=== PATIENT | female | born 1975 | race Caucasian/White ===

== ENCOUNTER 2018-09-11 08:57 | Emergency (ER) | payer OTHER ==
[2018-09-11] MEDS ORDERED: HYDROmorphone 1 MG/ML Syringe ONE (09:06)
[2018-09-11] MEDS ORDERED: Metoclopramide 10 MG/2 ML SDV IVPUSH ONE (09:06)
[2018-09-11] MEDS ORDERED: HYDROmorphone 1 MG/ML Syringe IVPUSH ONE ×2 (09:06→10:33)
[2018-09-11] MEDS ORDERED: LORazepam 2 MG/ML SDV IVPUSH ONE (09:06)
[2018-09-11] MEDS ORDERED: LORazepam 2 MG/ML SDV ONE (09:07)
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
[2018-09-11] MEDS ORDERED: Sodium Chloride 0.9% 1,000 ML IV SCH (09:15)
[2018-09-11] MEDS ORDERED: Diphtheria,Pertussis(Acell),Tetanus Vaccine 0.5 ML Syringe IM ONE (09:23)
[2018-09-11] MEDS ORDERED: ceFAZolin 1 GM in Premix Bag 1 BAG IV ONE (09:23)
[2018-09-11] MEDS ORDERED: Midazolam 1 MG/ML 5 ML SDV IVPUSH ONE (09:46)
[2018-09-11] MEDS ORDERED: fentaNYL 100 MCG/2 ML SDV IVPUSH ONE (09:46)
[2018-09-11] MEDS ORDERED: Lidocaine 1% 10 ML MDV INJECT ONE (10:17)
--- NOTE | 2018-09-11 10:32 | CT ---
Head CT Technique: Multiple axial sections through the brain were obtained. Intravenous contrast was not utilized. Comparison: Previous MRI brain of 06/21/[address] study of 06/20/13. Findings: Ventricles longer basal cisterns and sulci over convexities are mildly prominent. No abnormal parenchymal densities are seen. No evidence of intracranial hemorrhage. No midline shift or mass effect is seen. Bone window settings were reviewed which shows mucosal thickening within both inferior maxillary sinuses, which is worse on the right side which is likely chronic. No acute calvarial abnormality is seen. Scalp injury identified on the right side. Small foreign body is projected within the right frontal scalp. Impression: 1. Scalp injury on the right side. Small foreign body projected within the right frontal scalp. 2. Mild generalized atrophy. 3. No acute intracranial abnormality is seen. No acute skull fracture is noted. 4. Sinus findings which are likely chronic. Diagnostic code #3
--- NOTE | 2018-09-11 10:42 | CT ---
CT lumbar spine Technique: Multiple axial sections through the lumbar spine were obtained. Comparison: No prior lumbar spine imaging. Findings: Burst fracture is identified within the L1 vertebral body. There is approximately 60% vertebral body height loss. Retrolisthesed fragments are seen into the central canal at this level. These retrolisthesed fragment projects approximately 6.7 mm into the central canal. Fracture lines extend into the posterior vertebral line. Fracture is noted within the right posterior arch of L1 which shows no displacement. Additional fracture is noted within the transverse process of L1 on the right side which is slightly comminuted but shows no displacement. No additional fracture is seen. Spondylitic defects noted at L5-S1 causing mild spondylolisthesis by about 5-6 mm at L5-S1. Posterior disc space narrowing noted at L5-S1. Impression: 1. Burst fracture of L1 which shows retrolisthesed fragments into the central canal which narrows the central canal. Additional nondisplaced fracture within the posterior right arch of L1 and right transverse process of L1. 2. 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 Posterior disc at L5-S1 is narrowed. 3. No additional abnormality is appreciated. Diagnostic code #5
--- NOTE | 2018-09-11 10:45 | CT ---
CT cervical spine Technique: Multiple axial sections through the cervical spine were obtained. Reconstructed sagittal and coronal images were reviewed. Comparison: Prior cervical spine CT study of 06/20/13. Findings: Vertebral body heights and disc spaces are maintained. No bony central or bony neural foraminal stenosis is seen. No fracture is identified. Minimal degenerative change is seen within the lower apophyseal joints. Impression: 1. Slight degenerative change. 2. Nothing acute is appreciated on CT study of the cervical spine. Diagnostic code #2
--- NOTE | 2018-09-11 10:45 | CT ---
CT thoracic spine Technique: Multiple axial sections through the thoracic spine were obtained. Reconstructed coronal and sagittal images were obtained. Findings: Burst fracture with retrolisthesis fragments is again seen of L1. Vertebral body heights within the thoracic spine are maintained. No thoracic spine fracture is seen. No bony central lower bony neural foraminal analysis is seen. No abnormal subluxation is seen. No gross disc herniation is seen. Impression: 1. Burst fracture with retrolisthesis fragments again noted at L1. 2. CT study of the thoracic spine is otherwise unremarkable. Diagnostic code #3
--- NOTE | 2018-09-11 10:50 | CT ---
CT facial bones Technique: Multiple axial sections through the facial bones were obtained. Reconstructed sagittal and coronal images were reviewed. Comparison: Previous facial bone CT study of 06/20/13. Findings: Moderate areas of mucosal thickening and possible superimposed retention cysts are noted within both inferior maxillary sinuses. Other paranasal sinuses are clear. Incidental nasal septal deviation is seen. Lucency is noted around several teeth within the mandible and difficult to completely exclude tooth abscess. Findings may also represent reabsorption of bone from previous intervention. No fracture is seen. Right and left globes are symmetric. Impression: 1. Lucency around several mandibular teeth as described above. 2. No acute facial bone abnormality is seen. 3. Sinus findings which are felt to be chronic. Diagnostic code #3
--- NOTE | 2018-09-11 10:56 | CT ---
CT chest Technique: Multiple axial sections through the chest were obtained. Comparison: No prior chest CT, chest x-ray of 06/23/13 is available. Findings: Lungs are clear. No pulmonary contusion is seen. No pleural effusions or pneumothorax is seen. Mediastinum and hilar regions appear within normal limits. Moderately large hiatal hernia is noted. No discrete rib fracture is seen. Reconstructed sagittal images of the sternum appear intact. Impression: 1. Nothing acute is appreciated on CT study of the chest. Incidental findings as noted above. Diagnostic code #2 CT abdomen and pelvis Technique: Multiple axial sections were obtained from above the dome of the diaphragm inferiorly through the pubic symphysis. Intravenous contrast was utilized. Delayed images were also obtained from above the kidneys inferiorly through the pubic symphysis. No oral contrast has been given. Findings: Moderately large hiatal hernia again noted. Small low density finding is seen within the posterior right lobe of the liver which is felt to be incidental. No acute abnormality appreciated within the liver. Spleen appears within normal limits. Pancreas is within normal limits. Gallbladder contains no calcified gallstones. Adrenal glands show no nodule. Kidneys show symmetric contrast enhancement without abnormality. Aorta shows no aneurysm. No retroperitoneal adenopathy or mesenteric abnormalities are seen. No pelvic mass or adenopathy is noted. Delayed images shows contrast within the ureters which showed no contrast extravasation or ureteral obstruction. Contrast is noted within the bladder. Bone window settings again show burst fracture within L1. Vacuum phenomena is seen within the sacroiliac joints which is incidental. No acute fracture is appreciated within the pelvis or within either hip. Impression: 1. Incidental findings. Nothing acute is seen on CT study of the abdomen and pelvis. Diagnostic code #2
[2018-09-11] MEDS ORDERED: levETIRAcetam 500 MG in Sodium Chloride 0.9% 100 ML IV ONE (11:09)
--- NOTE | 2018-09-12 12:12 | CR ---
Right shoulder: Single AP view of the right shoulder was obtained. Overlying monitor leads are seen. No discrete fracture or other abnormality is seen. Impression: 1. No discrete abnormality is seen on one-view right shoulder study. Diagnostic code #1
--- NOTE | 2018-09-12 12:12 | CR ---
Left ankle: Four views of the left ankle were obtained. Comparison: No prior ankle study. Ankle mortise is symmetric. Soft tissue swelling is seen. Small plantar spur is noted. No acute fracture or dislocation is seen. Impression: 1. Findings as noted above. No acute bony abnormality is identified on the left ankle exam. Diagnostic code #2
== END 2018-09-11 12:25 ==
LOC: JD.ED 08:57
DX: S43.014A Anterior dislocation of right humerus, initial encounter (principal); S32.010A Wedge compression fracture of first lumbar vertebra, initial encounter for closed fracture; S32.019A Unspecified fracture of first lumbar vertebra, initial encounter for closed fracture; V49.3XXA Car occupant (driver) (passenger) injured in unspecified nontraffic accident, initial encounter; S01.81XA Laceration without foreign body of other part of head, initial encounter; S93.412A Sprain of calcaneofibular ligament of left ankle, initial encounter; F10.20 Alcohol dependence, uncomplicated
CPT/HCPCS: 12011; 23650; 36415; 51702; 70450; 70486; 71260; 72125; 72128; 72131; 73020; 73610; 74177; 80053; 81001; 82150; 82550; 84703; 85007; 85027; 85610; 85730; 90471; 90700; 93005; 96361; 96365; 96367; 96375; 96376; 99152; 99285; G0480; J0690; J1170; J1953; J2001; J2250; J2765; J3010; J7030; J7040; 23655; 93010; J2060

== ENCOUNTER 2021-10-24 15:45 | Emergency (ER) | payer MEDICAID, OTHER ==
[2021-10-24] MEDS ORDERED: Sodium Chloride 0.9% 10 ML Syringe FLUSH PRN ×2 (16:29→17:40)
[2021-10-24] MEDS ORDERED: Iopamidol 755 Mg/ML 100 ML Bottle IVPUSH ONE (17:40)
[2021-10-24] MEDS ORDERED: Sodium Chloride 0.9% 100 ML IV SCH (17:45)
== END 2021-10-24 19:17 | disposition home or self-care (01) ==
LOC: JD.ED 15:45
DX: R55 Syncope and collapse (principal); I10 Essential (primary) hypertension; Z72.0 Tobacco use; Z79.899 Other long term (current) drug therapy
CPT/HCPCS: 36415; 70450; 71045; 71275; 80053; 80307; 81001; 83735; 84443; 84484; 85025; 85379; 86140; 93005; 93225; 93226; 96360; 99285; J3490; Q9967

== ENCOUNTER 2022-05-01 08:54 | Emergency (ER) | payer MEDICAID ==
[2022-05-01] MEDS ORDERED: Sodium Chloride 0.9% 1,000 ML IV ONE (09:03)
[2022-05-01 10:32] LABS: ESTIMATED GFR 62 mL/min (>60)
[2022-05-01] MEDS ORDERED: levETIRAcetam 1,000 MG in Sodium Chloride 0.9% 100 ML IV ONE (11:18)
[2022-05-01] MEDS ORDERED: levETIRAcetam 500 MG/5 ML SDV ONE (11:23)
== END 2022-05-01 12:10 | disposition home or self-care (01) ==
LOC: JD.ED 08:54
DX: R56.9 Unspecified convulsions (principal); I10 Essential (primary) hypertension; Z79.899 Other long term (current) drug therapy
CPT/HCPCS: 36415; 80053; 81001; 82553; 83605; 85025; 96361; 96365; 99284; J1953; J7030